=== PATIENT | female | born 1990 | race Caucasian/White ===

== ENCOUNTER 2018-10-09 12:53 | Emergency (ER) | payer OTHER ==
[2018-10-09] MEDS ORDERED: FAMOTIDINE 20 MG TAB ONE (15:14)
[2018-10-09] MEDS ORDERED: predniSONE 20 MG TAB ONE (15:14)
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
[2018-10-09] MEDS ORDERED: DIPHENHYDRAMINE 25 MG TAB/CAP ONE (15:55)
== END 2018-10-09 16:04 | disposition home or self-care (01) ==
LOC: ER 12:53
DX: L23.9 Allergic contact dermatitis, unspecified cause (principal); Z72.0 Tobacco use
CPT/HCPCS: 99283; J7512